=== PATIENT | female | born 1970 | race Caucasian/White ===

== ENCOUNTER 2017-12-09 17:52 | Emergency (ER) | payer OTHER ==
[2017-12-09] MEDS ORDERED: MORPHINE SULFATE 10 MG/ML VIAL. (18:15)
[2017-12-09] MEDS: MORPHINE SULFATE 10 MG/ML VIAL. IM (18:19)
== END 2017-12-09 20:24 | disposition home or self-care (01) ==
LOC: ER 17:52
DX: S63.501A Unspecified sprain of right wrist, initial encounter (principal); S50.01XA Contusion of right elbow, initial encounter; M32.9 Systemic lupus erythematosus, unspecified; W18.39XA Other fall on same level, initial encounter; Y93.51 Activity, roller skating (inline) and skateboarding; Y99.8 Other external cause status; Y92.89 Other specified places as the place of occurrence of the external cause
CPT/HCPCS: 73080; 73090; 73110; 96372; 99284-25; J2270

== ENCOUNTER 2020-07-02 18:25 | Emergency (ER) | payer OTHER ==
[~2020-07-02] VITALS: Ht 172.7 cm; Wt 108.0 kg
[~2020-07-02 18:25] MED LIST: CHOL100017 PO; CITA20TA6 PO; CYCL10TA2 PO; HYDR-3164 PO; HYDR200T5 PO; MELO15TA23 PO; NAPR-514 PO; WARF10TA45 PO; WARF5TAB2 PO; WARF7.5T48 PO
[2020-07-02 18:42] VITALS: BP 112/55
--- NOTE | 2020-07-02 19:44 | PHYS DOC ---
Past Medical History Past Medical History: Other Additional Past Medical Histor: antiphospholipid antibody syndrome (APS), lupus Past Surgical History: Hysterectomy, Tonsillectomy, Other Additional Past Surgical Histo: partial hysterectomy,left ankle, right acl, Smoking Status: Never Smoker Alcohol Use: None Drug Use: None General Adult EDM: Chief Complaint: WRIST PAIN HPI: HPI: Patient is a 49 year old female with history of lupus who presents today complaining of moderate pain to the right shoulder, right elbow and right wrist that began after she stepped on a broken step and fell. Patient denies any loss of consciousness. Denies hitting her head on the ground. She describes the pain as sharp and constant. States the pain is worse on range of motion especially in the elbow. Review of Systems: Review of Systems: Constitutional: Denies fever or chills. [] Musculoskeletal: Reports right shoulder, right elbow and right wrist pain Integument: Denies rash. [] Neurologic: Denies headache, focal weakness or sensory changes. [] Psychiatric: Denies depression or anxiety. [] Heart Score: Risk Factors: Risk Factors: DM, Current or recent (<one month) smoker, HTN, HLP, family history of CAD, obesity. Risk Scores: Score 0 - 3: 2.5% MACE over next 6 weeks - Discharge Home Score 4 - 6: 20.3% MACE over next 6 weeks - Admit for Clinical Observation Score 7 - 10: 72.7% MACE over next 6 weeks - Early Invasive Strategies Allergies: Allergies: Allergies Coded Allergies Type Severity Reaction Last Updated Verified No Known Drug Allergies 08/13/17 No Physical Exam: PE: Constitutional: Well developed, well nourished, no acute distress, non-toxic appearance. [] Skin: Warm, dry, no erythema, no rash. [] Back: No tenderness, no CVA tenderness. [] Extremities: Right shoulder right elbow and right wrist with no obvious deformity. Tenderness on palpation of the wrist. Full range of motion to the right shoulder and wrist, limited range of motion to the right shoulder. Adequate radial, medial, ulnar sensation to the right upper extremity. +2 right radial pulse. Cap refill less than 2 seconds of right fingers. Neurologic: Alert and oriented X 3, normal motor function, normal sensory function, no focal deficits noted. [] Psychologic: Affect normal, judgement normal, mood normal. [] Current Patient Data: Vital Signs: Vital Signs Date Time Temp Pulse Resp B/P (MAP) Pulse Ox O2 Delivery O2 Flow Rate FiO2 07/02/20 18:42 98.4 47 18 112/55 (74) 97 Room Air 98.4 EKG: EKG: [] Radiology/Procedures: Radiology/Procedures: [] Course & Med Decision Making: Course & Med Decision Making Pertinent Labs and Imaging studies reviewed. (See chart for details) This is a 49-year-old female patient presenting to the ED today with right shoulder, right elbow and right wrist pain that began today after she fell. Right shoulder xrays, right wrist xrays interpreted by Dr Fletcher are negative for any acute findings. Right elbow xrays interpreted by Dr. Fletcher noted for radial head fx. patient was placed in a long posterior arm splint by the development technical lead, neurovascular exam done by me is negative. Provided orthopedic doctor for follow-up next week. Ice elevation encouraged. Dragon Disclaimer: Dragon Disclaimer: This electronic medical record was generated, in whole or in part, using a voice recognition dictation system. Departure Departure Impression: Primary Impression: Contusion of right shoulder Qualified Codes: S40.011A - Contusion of right shoulder, initial encounter Additional Impressions: Right wrist sprain Qualified Codes: S63.501A - Unspecified sprain of right wrist, initial encounter Right radial head fracture Qualified Codes: S52.124A - Nondisplaced fracture of head of right radius, initial encounter for closed fracture Disposition: HOME, SELF-CARE Condition: STABLE Referrals: DIVYA COPELAND MD (PCP) MAR VERDE MD Call his office on Sunday and set up a follow-up appointment Patient Instructions: Contusion, [id number], Radial Head Fracture, Wrist Sprain with [facility] Additional Instructions: You were evaluated in the emergency room and noted to have elbow fracture. Please follow-up with orthopedic doctor provided, call his office on Sunday. Try to ice and elevate the extremity as tolerated Justicifation of Admission Dx: Justifications for Admission: Justification of Admission Dx: N/A JUAN MANUEL ERVIN APRN Jul 02, 2020 19:44
--- NOTE | 2020-07-02 20:42 | RAD ---
Right shoulder x-rays 3 views HISTORY: Fall, right shoulder pain. FINDINGS: No fracture or dislocation. No arthritic change. The soft tissues are unremarkable. IMPRESSION: No acute osseous injury of the right shoulder. Right elbow x-rays 3 views HISTORY: Fall, right elbow pain. FINDINGS: Abnormal elevation of the fat pads suggesting presence of a joint effusion. There is an acute traumatic intra-articular fracture of the radial head with mild impaction of the anterior radial head. There is irregularity of the ulna coronoid somewhat overlapped by density of the humerus and a fracture of the coronoid is not excluded. There is bone spurring of the coronoid also noted. IMPRESSION: Acute traumatic intra-articular fracture of the radial head and lipohemarthrosis of the joint. No dislocation. See above. Right wrist x-rays 3 views HISTORY: Fall, right wrist pain. FINDINGS: No fracture, dislocation or arthritic change of the wrist. The soft tissues are unremarkable IMPRESSION: No acute osseous injury of the right wrist. Electronically signed by: Xander Case MD (07/02/2020 8:39 PM) REKHA
== END 2020-07-02 20:55 | disposition home or self-care (01) ==
LOC: ER 18:25
DX: S52.124A Nondisplaced fracture of head of right radius, initial encounter for closed fracture (principal); S40.011A Contusion of right shoulder, initial encounter; M25.521 Pain in right elbow; W18.31XA Fall on same level due to stepping on an object, initial encounter; Y93.89 Activity, other specified; Y92.89 Other specified places as the place of occurrence of the external cause; Y99.8 Other external cause status
CPT/HCPCS: 29105; 73030; 73080; 73110; 99284

== ENCOUNTER 2020-07-04 15:00 | Emergency (ER) | payer OTHER ==
[~2020-07-04] VITALS: Ht 172.7 cm; Wt 104.5 kg
[2020-07-04 15:19] VITALS: BP 148/71
--- NOTE | 2020-07-04 16:20 | PHYS DOC ---
Past Medical History Past Medical History: Other Additional Past Medical Histor: antiphospholipid antibody syndrome (APS), lupus Past Surgical History: Hysterectomy, Tonsillectomy, Other Additional Past Surgical Histo: partial hysterectomy,left ankle, right acl, Smoking Status: Never Smoker Alcohol Use: None Drug Use: None General Adult EDM: Chief Complaint: UPPER EXTREMITY PAIN HPI: HPI: Patient is a 49 year old female who presents with numbness and swelling in the right hand. Patient was here on July 02 after falling off of her father's porch and receiving a acute traumatic intra-articular fracture of the radial head and lipohemarthrosis of the joint. Patient was initially unable to make a fist in the hand has 2+ swelling and was dusky in color. After splint is unwrapped patient the skin is pink warm and dry with a strong radial pulse. Cap refill is less than 2 seconds. Patient is able to move all her fingers and make a full fist. She states now is just tingling and she has feeling. Patient denies any pain. She states on Sunday she is calling orthopedics to schedule an appointment. Review of Systems: Review of Systems: Constitutional: Denies fever or chills. [] Eyes: Denies change in visual acuity. [] HENT: Denies nasal congestion or sore throat. [] Respiratory: Denies cough or shortness of breath. [] Cardiovascular: Denies chest pain or edema. [] GI: Denies abdominal pain, nausea, vomiting, bloody stools or diarrhea. [] : Denies dysuria. [] Musculoskeletal: Denies back pain or joint pain. Right hand weakness.[] Integument: Denies rash. Right hand dusky color.[] Neurologic: Denies headache, focal weakness. Right hand sensory changes. [] Endocrine: Denies polyuria or polydipsia. [] Lymphatic: Denies swollen glands. [] Psychiatric: Denies depression or anxiety. [] Heart Score: Risk Factors: Risk Factors: DM, Current or recent (<one month) smoker, HTN, HLP, family history of CAD, obesity. Risk Scores: Score 0 - 3: 2.5% MACE over next 6 weeks - Discharge Home Score 4 - 6: 20.3% MACE over next 6 weeks - Admit for Clinical Observation Score 7 - 10: 72.7% MACE over next 6 weeks - Early Invasive Strategies Allergies: Allergies: Allergies Coded Allergies Type Severity Reaction Last Updated Verified No Known Drug Allergies 08/13/17 No Physical Exam: PE: Constitutional: Well developed, well nourished, no acute distress, non-toxic appearance. [] HENT: Normocephalic, atraumatic, bilateral external ears normal, oropharynx moist, no oral exudates, nose normal. [] Eyes: PERRLA, EOMI, conjunctiva normal, no discharge. [] Neck: Normal range of motion, no tenderness, supple, no stridor. [] Cardiovascular:Heart rate regular rhythm, no murmur [] Lungs & Thorax: Bilateral breath sounds clear to auscultation [] Abdomen: Bowel sounds normal, soft, no tenderness, no masses, no pulsatile masses. [] Skin: Warm, dry, no erythema, no rash. [] Back: No tenderness, no CVA tenderness. [] Extremities: No tenderness, no cyanosis, no clubbing, ROM intact, Right hand 2+ edema. [] Neurologic: Alert and oriented X 3, normal motor function, normal sensory function, no focal deficits noted. [] Psychologic: Affect normal, judgement normal, mood normal. [] Current Patient Data: Vital Signs: Vital Signs Date Time Temp Pulse Resp B/P (MAP) Pulse Ox O2 Delivery O2 Flow Rate FiO2 07/04/20 15:19 98.1 65 16 148/71 (96) 98 Room Air 98.1 EKG: EKG: [] Radiology/Procedures: Radiology/Procedures: [] Course & Med Decision Making: Course & Med Decision Making Pertinent Labs and Imaging studies reviewed. (See chart for details) See HPI. Patient splint is rewrapped. Patient to follow-up with orthopedics. Patient is educated to elevate the extremity as she did not do so last night. Patient has full function of her hand and strength, Skin pink warm and dry. Cap refill less than 2 seconds. Patient is neurologically and vascularly intact. Compartments are soft. Splint assessment: Neurovascularly intact post splint replacement with good fit. Patient's extremity symptoms have stabilized well they have been evaluated in the department and are appropriate for outpatient follow-up. No evidence of compartment syndrome, neurologic injury, vascular injury, open joint, open fracture, tendon laceration, or foreign body. 07/02 Xray shows: IMPRESSION: Acute traumatic intra-articular fracture of the radial head and lipohemarthrosis of the joint. No dislocation. See above. [] Jean Disclaimer: Jean Disclaimer: This electronic medical record was generated, in whole or in part, using a voice recognition dictation system. Departure Departure Impression: Primary Impression: Numbness and tingling in right hand Disposition: HOME, SELF-CARE Condition: STABLE Referrals: DIVYA COPELAND MD (PCP) MAR VERDE MD Patient Instructions: Medical Screening Exam Additional Instructions: Follow with with orthopedics as planned. Use ice and elevation. If numbness, skin color change returns or there is weakness in the extremity return to the ED. Justicifation of Admission Dx: Justifications for Admission: Justification of Admission Dx: N/A CHLOÉ OLIVEIRA APRN Jul 04, 2020 16:20
== END 2020-07-04 16:29 | disposition home or self-care (01) ==
LOC: ER 15:00
DX: R20.2 Paresthesia of skin (principal); R60.0 Localized edema; Z90.710 Acquired absence of both cervix and uterus; Z98.890 Other specified postprocedural states
CPT/HCPCS: 99282